=== PATIENT | male | born 1980 | race Caucasian/White ===

== ENCOUNTER 2019-06-13 08:56 | Emergency (ER) | payer OTHER ==
[~2019-06-13] VITALS: Ht 180.3 cm; Wt 81.7 kg
[2019-06-13] MEDS ORDERED: PRAZOSIN HCL1 GM (09:11)
[2019-06-13] MEDS ORDERED: PROZAC10 MG PO (09:11)
== END 2019-06-13 09:59 | disposition home or self-care (01) ==
LOC: ED 08:56
DX: S93.601A Unspecified sprain of right foot, initial encounter (principal); Z91.018 Allergy to other foods; Z79.899 Other long term (current) drug therapy; X50.1XXA Overexertion from prolonged static or awkward postures, initial encounter
CPT/HCPCS: 73630; 99283

== ENCOUNTER 2019-06-25 21:12 | Emergency (ER) | payer OTHER ==
[~2019-06-25] VITALS: Ht 180.3 cm; Wt 81.7 kg
[~2019-06-25 21:12] MED LIST: PRAZOSIN HCL1 GM; PROZAC10 MG PO
--- OUTSIDE RECORDS SUMMARY | 2019-06-25 21:14 | XMS ---
PreManage Notification: [employer]er Events No recent Security Events currently on file CRITERIA MET - [facility] - 2 Visits in 30 Days CARE PROVIDERS [facility] Current PHONE: Unknown [place] has no Care Guidelines for this patient. [place] VISIT COUNT (12 MO.) 2 [facility] TOTAL 2 NOTE: Visits indicate total known visits. ED/UCC VISIT TRACKING (12 MO.) 06/25/2019 21:13 [facility] TYPE: Emergency COMPLAINT: - INJURED HAND 06/13/2019 08:57 [facility] TYPE: Emergency COMPLAINT: - FOOT INJ DIAGNOSES: - Other nursing home (current) drug therapy - Overexertion from prolonged static or awkward postures, initial encounter - Unspecified sprain of right foot, initial encounter - Pain in right ankle and joints of right foot - Allergy to other foods INPATIENT VISIT TRACKING (12 MO.) No inpatient visits to display in this time frame [id number]
== END 2019-06-25 21:53 | disposition home or self-care (01) ==
LOC: ED 21:12
PROC: 0H9QXZZ Drainage of Finger Nail, External Approach (ICD-10-PCS; principal; 2019-06-25)
DX: S60.111A Contusion of right thumb with damage to nail, initial encounter (principal); Z87.891 Personal history of nicotine dependence; Z91.018 Allergy to other foods; Z79.899 Other long term (current) drug therapy; W27.8XXA Contact with other nonpowered hand tool, initial encounter
CPT/HCPCS: 11740; 73130; 99283-25